=== PATIENT | female | born 1970 | race African-American/Black ===

== ENCOUNTER 2017-10-29 12:45 | Emergency (ER) | payer SELFPAY ==
[2017-10-29 13:20] LABS: #Basophils 0.1 thou/uL (0.0-0.2); #Eosinphils 0.1 thou/uL (0.0-0.7); #Lymphocytes 4.9 thou/uL (1.20-3.40); #Monocytes 0.7 thou/uL (0.11-0.59); %Basophils 1.1 % (0.0-1.0); %Eosinophils 0.5 % (0.0-10.0); %Lymphocytes 38.2 % (21.0-51.0); %Monocytes 5.7 % (0.0-10.0); %Neutrophils 54.6 % (42.0-75.0); Hemoglobin 14.6 g/dL (12.0-16.0); Mean Corpuscular HGB CONC 33.8 g/dL (32.0-36.0); Mean Corpuscular Hemoglobin 30.7 pg (27.0-31.0); Mean Corpuscular Volume 90.8 fL (78.0-98.0); Mean Platelet Volume 7.7 fL (7.4-10.4); Platelet Count 161 thou/uL (130-400); RBC Distribution Width 13.1 % (11.5-14.5); Red Blood Cell (RBC) Count 4.75 mill/uL (4.20-5.40); White Blood Cell (WBC) Count 12.7 thou/uL (4.8-10.8)
[2017-10-29 13:41] LABS: ALT (SGPT) 13 U/L (8-55); AST (SGOT) 13 U/L (5-34); Albumin 4.2 g/dL (3.5-5.0); Alkaline Phosphatase 57 U/L (40-150); Anion Gap 12 mmol/L (10-20); BUN (Urea Nitrogen) 7 mg/dL (7.0-18.7); Bilirubin, Total 0.6 mg/dL (0.2-1.2); Calc. Creatinine Clearance 0 mL/min (70-130); Calcium 9.3 mg/dL (7.8-10.44); Carbon Dioxide 25 mmol/L (22-29); Chloride 102 mmol/L (98-107); Estimated GFR-MDRD Greater than 90; Globulin 3.8 g/dL (2.4-3.5); Glucose 132 mg/dL (70-105); Lipase 55 U/L (8-78); Potassium 3.5 mmol/L (3.5-5.1); Sodium 135 mmol/L (136-145)
[2017-10-29 13:55] LABS: Bilirubin Negative (Negative); Blood, Urine Trace (Negative); Clarity CLEAR (Clear); Glucose, Urine (Dipstick) Negative (Negative); Leukocyte Small (Negative); Nitrite Negative (Negative); Protein, Urine (Dipstick) Negative (Neg-Trace); Specific Gravity, Urine 1.016 (1.002-1.036); Urobilinogen 0.2 mg/dL (0.2-1.0); pH, Urine 6.5 (5.0-9.0)
[2017-10-29 13:58] LABS: Bacteria/HPF None Seen HPF (None Seen); Hyaline Casts/LPF 0-3 HYALINE CAST LPF (0-3 Hyaline); Pathc Cast-AUWi Flag 0.14 (0-2.49); Squamous Epithelial 0-3 HPF (0-3); WBC/HPF 0-3 HPF (0-3)
--- NOTE | 2017-10-29 15:01 | CT ---
CT ABDOMEN AND PELVIS NONCONTRAST: Date: 10/29/17 HISTORY: Flank pain. FINDINGS: Each renal collecting system, ureter, and the urinary bladder are decompressed without stone evident. Phleboliths are visualized within the pelvis. Lack of contrast limits evaluation for other abnormalities. Liver is diffusely hypodense. Nonenlarged lymph nodes are scattered about the retroperitoneum. Calcification in the arterial structures. IMPRESSION: 1. No CT evidence of urinary tract obstruction or calcification. 2. Atherosclerosis. POS: [facility]
== END 2017-10-29 15:50 | disposition home or self-care (01) ==
LOC: ERS 12:45
DX: R10.9 Unspecified abdominal pain (principal); R31.9 Hematuria, unspecified; E11.9 Type 2 diabetes mellitus without complications; I10 Essential (primary) hypertension; F17.210 Nicotine dependence, cigarettes, uncomplicated; Z79.84 Long term (current) use of oral hypoglycemic drugs; Z79.899 Other long term (current) drug therapy
CPT/HCPCS: 36415; 74176; 80053; 81003; 81015; 83690; 85025

== ENCOUNTER 2018-05-25 18:50 | Emergency (ER) | payer SELFPAY | END 2018-05-25 21:09 | disposition home or self-care (01) | LOC: ERS 18:50 | DX: M62.830 Muscle spasm of back (principal); I10 Essential (primary) hypertension; E11.9 Type 2 diabetes mellitus without complications; F17.210 Nicotine dependence, cigarettes, uncomplicated | CPT/HCPCS: 99283 ==

== ENCOUNTER 2019-03-17 16:00 | Emergency (ER) | payer SELFPAY ==
[2019-03-17] MEDS ORDERED: Ibuprofen 200 MG TAB ONE (17:14)
== END 2019-03-17 17:10 | disposition home or self-care (01) ==
LOC: ERS 16:00
DX: M54.12 Radiculopathy, cervical region (principal); E11.9 Type 2 diabetes mellitus without complications; I10 Essential (primary) hypertension; F17.210 Nicotine dependence, cigarettes, uncomplicated
CPT/HCPCS: 93005; 99283

== ENCOUNTER 2024-03-07 15:57 | Emergency (ER) | payer SELFPAY ==
[2024-03-07] MEDS ORDERED: Cyclobenzaprine 10 MG TAB ONE (17:44)
[2024-03-07] MEDS ORDERED: Ketorolac Tromethamine 30 MG (1 mL) VIAL ONE (17:44)
[2024-03-07] MEDS ORDERED: Morphine 4 MG/ML VIAL ONE (17:44)
[2024-03-07] MEDS ORDERED: Acetaminophen 325 MG TAB ONE (18:54)
[2024-03-07] MEDS ORDERED: Ondansetron PF 4 MG/2 ML Vial ONE (18:54)
[2024-03-07] MEDS ORDERED: methylPREDNISolone Sod Succ/PF 125 MG/2 ML VIAL ONE (18:55)
== END 2024-03-07 19:18 | disposition home or self-care (01) ==
LOC: ERS 15:57
DX: M54.12 Radiculopathy, cervical region (principal); M79.601 Pain in right arm; F17.210 Nicotine dependence, cigarettes, uncomplicated; I10 Essential (primary) hypertension; E11.9 Type 2 diabetes mellitus without complications
CPT/HCPCS: 93005; 96374; 96375; J1885; J2272; J2405; J2919